=== PATIENT | male | born 1950 | race Caucasian/White ===

== ENCOUNTER → 2020-04-21 | Outpatient (CLI) | payer BC ==
--- NOTE | 2020-04-21 10:57 | RADIOLOGY REPORT (SQ) ---
EXAM DESCRIPTION: SKULL 1-3 VIEWS IMAGES COMPLETED DATE/TIME: 04/21/2020 10:35 am REASON FOR STUDY: FOREIGN BODY EVAL M25.561 PAIN IN RIGHT KNEE COMPARISON: None. NUMBER OF VIEWS: Two Views. TECHNIQUE: Rasheed and lateral views of the skull were obtained. LIMITATIONS: None. FINDINGS: SKULL: Intact. There is no fracture. OTHER: The orbits are intact. There is no radiopaque foreign body. The paranasal sinuses are aerate d. There is no expansion of the sella turcica. IMPRESSION: No acute osseous abnormality or radiopaque foreign body. TECHNICAL DOCUMENTATION: JOB ID: [id number] 2010 [employer]- All Rights Reserved Reading location - IP/workstation name: [email or web address]
--- NOTE | 2020-04-21 17:07 | RADIOLOGY REPORT (SQ) ---
EXAM DESCRIPTION: MRI RT LOWER JOINT WITHOUT IMAGES COMPLETED DATE/TIME: 04/21/2020 11:14 am REASON FOR STUDY: KNEE PAIN (M25.561) M25.561 PAIN IN RIGHT KNEE COMPARISON: None. TECHNIQUE: Non arthrogram non contrasted MRI rightknee images acquired and stored on PACS. Multipla milena images include fat sensitive sequences as T1, water sensitive sequences as FST2 or STIR, cartilag e sensitive sequences as FSPD, and gradient echo sequences. LIMITATIONS: None. FINDINGS: JOINT AND BURSAE: No effusion. BONE CORTEX AND MARROW: No alteration of signal to suggest marrow replacement. No worrisome bone lesi ons. No occult fracture. ACL: Torn, best shown on sagittal image 12 PCL: Intact. MCL: Intact. No periligamentous edema or fluid. LCL: Intact. No periligamentous edema or fluid. MEDIAL MENISCUS: Small horizontal tear mid body medial meniscus, best shown on coronal images 13-18. No parameniscal cyst. LATERAL MENISCUS: There is intrameniscal signal in the mid body and posterior horn lateral meniscus w ithout gross meniscal tear. MEDIAL COMPARTMENT: Mild chondromalacia. No bone bruises or reactive marrow edema. No osteophytes. LATERAL COMPARTMENT: Mild chondromalacia. No bone bruises or reactive marrow edema. No osteophytes. PATELLA: Mild chondromalacia. No subchondral cysts. Medial and lateral retinacula intact. EXTENSOR MECHANISM: Intact. Quadriceps and patella tendons normal. SOFT TISSUES: Adjacent muscles and subcutaneous tissues normal. Normal flow void in popliteal artery and vein. OTHER: No other significant finding. IMPRESSION: Torn ACL Small tear midbody medial meniscus without parameniscal cyst TECHNICAL DOCUMENTATION: JOB ID: [id number] [employer]- All Rights Reserved Reading location - IP/workstation name: [email or web address]
== END ==
LOC: RAD 10:10
PROVIDERS: ATTEND Orthopaedic Surgery Sports Medicine
DX: M25.561 Pain in right knee (principal)
CPT/HCPCS: 70250

== ENCOUNTER → 2020-05-04 | Outpatient (CLI) | payer BC, MEDICARE ==
--- NOTE | 2020-05-04 13:53 | RADIOLOGY REPORT (SQ) ---
EXAM DESCRIPTION: MRI RT UPPER JOINT WITHOUT IMAGES COMPLETED DATE/TIME: 05/04/2020 12:17 pm REASON FOR STUDY: RIGHT SHOULDER PAIN M25.511 PAIN IN RIGHT SHOULDER M75.101 UNSP ROTATR-CUFF TEAR /RUPTR OF RIGHT SHOULDER, NOT T fell on right shoulder last Monday. Decreased range of motion, gr inding and clicking, pain with lifting. Popping and stiffness. Weakness. Feels like its dislocated . COMPARISON: None. TECHNIQUE: Right shoulder images acquired and stored on PACS. Multiplanar imaging to include fat sen sitive sequences such as T1, water sensitive sequences such as FST2/STIR, cartilage sensitive sequenc es such as FSPD/gradient-echo sequences. LIMITATIONS: None. FINDINGS: BONE MARROW AND CORTEX: No worrisome bone lesions or marrow replacement. No occult fractur es. JOINT OR BURSAL EFFUSION: Small joint effusion. GLENO-HUMERAL ARTICULATION: Normal articulation. No subluxation. No cystic change. No osteophytes or cartilage loss. 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 Hypertrophy at ligament. No down-sloping or distal spur. Sub-acromial space maintained. ROTATOR CUFF AND INTERVAL: There is a full-thickness tear of the subscapularis tendon with approximat blaire 15 mm of retraction. Partial thickness articular surface tear of the infraspinatus tendon. No m uscle atrophy. No rotator interval thickening to suggest adhesive capsulitis. LABRUM AND BICEPS LABRAL COMPLEX: The labrum is grossly intact. The biceps tendon is dislocated ant eriorly from the bicipital groove. Abnormal signal in the biceps tendon suggestive of partial tear o r tendinopathy. REMAINDER OF LABRUM AND IGHL : No gross tear or paralabral cyst formation. Labral evaluation is less than optimal without joint distention. No thickening of IGHL to suggest adhesive capsulitis. PERIARTICULAR AND ADJACENT SOFT TISSUES: Edema in the subscapularis muscle. OTHER: No other significant finding. IMPRESSION: 1. Full-thickness rupture of the subscapularis tendon. Edema in the subscapularis muscle. 2. Dislocated long head of the biceps tendon from the bicipital groove. Abnormal signal in the bicep s tendon suggesting partial rupture or superimposed tendinosis. 3. Partial thickness articular surface tear of the infraspinatus tendon. 4. Small joint effusion. TECHNICAL DOCUMENTATION: JOB ID: [id number] 2010 [employer]- All Rights Reserved Reading location - IP/workstation name: [email or web address]
== END ==
LOC: RAD 12:23
PROVIDERS: ATTEND Orthopaedic Surgery Sports Medicine
DX: M75.101 Unspecified rotator cuff tear or rupture of right shoulder, not specified as traumatic (principal); M25.511 Pain in right shoulder